=== PATIENT | female | born 1980 | race Two or more races ===

== ENCOUNTER 2023-01-28 20:21 | Emergency (ER) | payer OTHER ==
[~2023-01-28] VITALS: Ht 165.1 cm; Wt 96.4 kg
[2023-01-28 20:26] VITALS: BP 125/95; RESP 16; TEMP 98; O2SAT 97
[2023-01-28 20:40] VITALS: PULSE 72
[2023-01-28 21:27] LABS: Basophils # (auto) 0 10 ^3/uL (0-0.2); Basophils % (auto) 0.6 % (0.0-2.0); Eosinophils # (auto) 0.1 10 ^3/uL (0-0.8); Hemoglobin 10.6 g/dL (12.2-16.2); Mean Corpuscular Hemoglobin 24.4 pg (28.0-32.0); Monocytes # (auto) 0.4 10 ^3/uL (0-1.3); Red Blood Cells 4.35 10^6/uL (4.0-5.20)
[2023-01-28 21:29] LABS: Eosinophils % (auto) 2.2 % (0.0-7.0); Hematocrit 31.6 % (36.0-46.0); Lymphocytes # (auto) 2.5 10 ^3/uL (0.4-5.4); Lymphocytes % (auto) 49.3 % (10.0-50.0); Mean Corpuscular Hgb Conc. 33.6 g/dL (32.0-36.0); Mean Corpuscular Volume 72.8 fL (80.0-100.0); Monocytes % (auto) 8.9 % (0.0-12.0); Neutrophils # (auto) 1.9 10 ^3/uL (1.6-8.6); Red Cell Distribution Width 19.9 % (11.8-14.3)
[2023-01-28 21:31] LABS: Alanine Aminotransferase 27 U/L (7-40); Albumin 4.6 g/dL (3.2-4.8); Alkaline Phosphatase 79 U/L (46-116); Anion Gap 9 (5-15); Aspartate Aminotransferase 24 U/L (13-40); BUN/Creatinine Ratio 14.6 (10.0-20.0); Bilirubin, Total 0.9 mg/dL (0.2-1.0); Blood Urea Nitrogen 15 mg/dL (9-23); Calcium 9.6 mg/dL (8.5-10.1); Carbon Dioxide 20 mmol/L (20-30); Chloride 110 mmol/L (98-107); Glucose 97 mg/dL (74-106); Potassium 3.7 mmol/L (3.5-5.1); Sodium 139 mmol/L (136-145)
[2023-01-28 21:32] LABS: Total Protein 7.4 g/dL (5.7-8.2)
[2023-01-28 21:42] LABS: INR 1.05 (0.9-1.15); Partial Thromboplastin Time 28.3 SEC (24.5-34.5)
[2023-01-29 09:02] LABS: Urine Bacteria FEW /hpf (None Seen); Urine Blood 2+ /uL (Negative); Urine Clarity HAZY (Clear); Urine Color Yellow (Yellow); Urine Mucus MODERATE (None Seen); Urine Protein, UAD 1+ (Negative); Urine Specific Gravity 1.035 (1.001-1.035); Urine Urobilinogen Normal (Negative); Urine WBC 4 /hpf (0 - 5); Urine pH 5.5 (5.0-8.0)
== END 2023-01-28 21:51 | disposition home or self-care (01) ==
LOC: EEVIPCON 20:21 → ER 20:21
DX: M79.605 Pain in left leg (principal)
CPT/HCPCS: 36415; 80053; 81001; 81025; 84484; 85025; 85379; 85610; 85730; 93005; 93970

== ENCOUNTER 2023-03-25 04:36 | Emergency (ER) | payer OTHER ==
[~2023-03-25] VITALS: Ht 165.1 cm; Wt 98.7 kg
[2023-03-25] MEDS ORDERED: ALBUTEROL MEDNEB 2.5 mg/3ml NEB NEB ONE (04:45)
[2023-03-25] MEDS ORDERED: DexAMETHasone SOD PHOS 10MG/1ML VIAL INJ IM ONE (04:45)
[2023-03-25] MEDS ORDERED: IPRATROPIUM BROM 0.5 MG/2.5ML INH SOL NEB ONE (04:45)
[2023-03-25] MEDS ORDERED: AZITTAB PO (05:00)
[2023-03-25] MEDS ORDERED: ALBU108A5 IN (05:00)
[2023-03-25] MEDS ORDERED: PROM1SOL4 PO (05:00)
[2023-03-25] MEDS ORDERED: PRED10TA PO (05:00)
[2023-03-25 05:11] VITALS: BP 149/97; PULSE 84; RESP 18; TEMP 98.1; O2SAT 97
== END 2023-03-25 05:08 | disposition home or self-care (01) ==
LOC: ER 04:36 → EEVIPCON 04:36 → ER 05:08
DX: J06.9 Acute upper respiratory infection, unspecified (principal)
CPT/HCPCS: 94640; J1100